=== PATIENT | male | born 1955 | race Caucasian/White ===

== ENCOUNTER 2021-09-15 13:30 | Outpatient (CLI) | payer MEDICARE, SELFPAY ==
--- NOTE | 2021-09-15 14:35 | ECG_ITS ---
Rate 57 CO 185 QRSd 82 QT 413 QTc 403 --[place]-- P 23 QRS -11 T 7 SINUS BRADYCARDIA EARLY PRECORDIAL R/S TRANSITION VOLTAGE CRITERIA FOR LVH BASELINE ARTIFACT- I, II, III, AVR, AVL,A VF BORDERLINE ECG Electronically Signed On 09-15-2021 15:38:49 CDT by Nomi LOCKHART
[2021-09-15 15:38] LABS: Basophils Percent Auto 0.9 % (0.2-1.2); Eosinophils Absolute Auto 0.1 K/mm3 (0-0.3); Eosinophils Percent Auto 1.9 % (0-4.4); Hematocrit 41.3 % (42.0-52.0); Hemoglobin 13.9 g/dL (14.0-18.0); Immature Granulocyte Absolute 0.02 K/mm3 (0.00-0.031); Immature Granulocyte Percent A 0.5 % (0-0.5); Lymphocytes Percent Auto 33.1 % (18.3-44.2); Mean Corpuscular HGB Conc 33.7 g/dl (32-36); Mean Corpuscular Hemoglobin 31.8 pg (26-34); Mean Corpuscular Volume 94.5 fl (80-100); Mean Platelet Volume 9.6 fl (7.4-10.4); Monocytes Absolute Auto 0.5 K/mm3 (0.1-0.6); Monocytes Percent Auto 10.9 % (2.6-8.5); Neutrophils Absolute Auto 2.2 K/mm3 (1.3-6.7); Neutrophils Percent Auto 52.7 % (45.5-73.1); Platelet Count Result 238 k/mm3 (150-375); Red Blood Count 4.37 M/mm3 (4.6-6.20); Red Cell Distribution Width 13.1 % (11.5-14.5); White Blood Count 4.2 K/mm3 (4.5-10.0)
[2021-09-15 15:39] LABS: Albumin Level 4.4 g/dL (3.5-5.1); Anion Gap 8 mmol/L (8-16); Blood Urea Nitrogen 19 mg/dL (9-20); Calcium 9.2 mg/dL (8.4-10.2); Carbon Dioxide 27 mmol/L (22-30); Chloride 104 mmol/L (98-107); Estimated Glomerular Filt Rate > 60; Glucose 95 mg/dL (65-110); Potassium 4.4 mmol/L (3.4-5.0); Sodium 139 mmol/L (137-145)
[2021-09-15 15:50] LABS: Urine Cotinine NEGATIVE
[2021-09-15 16:18] LABS: Hemoglobin A1C 5.3 % (<5.7)
== END 2021-09-15 13:31 | disposition home or self-care (01) ==
LOC: ANHSURGERY 13:35
PROVIDERS: PCP Family Medicine; Visit Provider Orthopaedic Surgery
DX: M16.11 Unilateral primary osteoarthritis, right hip (principal); Z01.818 Encounter for other preprocedural examination
CPT/HCPCS: 80048; 80307; 82040; 83036; 85025; 87070; 93005

== ENCOUNTER → 2021-09-26 00:43 | Outpatient (CLI) | payer MEDICARE, SELFPAY ==
[2021-09-26 17:30] LABS: SARS-CoV-2 RNA PCR Negative
== END ==
PROVIDERS: PCP Family Medicine; Visit Provider Orthopaedic Surgery
DX: Z01.812 Encounter for preprocedural laboratory examination (principal); Z20.822 Contact with and (suspected) exposure to COVID-19; M16.11 Unilateral primary osteoarthritis, right hip
CPT/HCPCS: C9803; U0003; U0005

== ENCOUNTER 2021-09-30 01:40 | Day surgery (SDC) | payer MEDICARE, SELFPAY ==
--- NOTE | 2021-09-15 13:46 | PC.NURSE ---
Report to the Outpatient Waiting Room, entrance under the green pavilion located off [facility], at time ____10:00am___ on date __09/30/21___. OR Time: ____12:00pm____. - You and your visitor will be asked a series of questions to screen for COVID 19 for your protection. - A mask is required within the hospital. - Only one visitor is allowed at this time. Patient visitors will be guided where to wait when not with patient. Preoperative COVID Testing Requirements: No COVID Test needed if: (proof is required; if not received patient will have Rapid Test prior to entry) - Patient has received COVID Vaccine at least 14 days prior to procedure date or - Patient has positive COVID test result within last 90 days of surgery date. COVID Test needed if above criteria is not met If not COVID vaccinated a COVID test must be conducted within 72 hours of surgery and patient is asked to isolate self from time of testing until procedure. You will go to the [facility] for your COVID testing. The [facility] is located at the corner of [address] [facility]. You will only be called if COVID results are positive and your surgeon may reschedule your elective surgery date. Patients may have clear liquids (water, carbonated beverages, clear teas, apple juice) until 3 hours prior to surgery with a maximum of 20 ounces. - No food from midnight until time of surgery - Infants may have breast milk until 4 hours before surgery, infant formula 6 hours prior to surgery. - Children will be allowed to drink immediately following surgery. If applicable, please bring a bottle or sippy cup to assist with drinking. Juice, water, soda, and popsicles are readily available. For infants on formula, please bring formula the day of surgery. Pacifiers are allowed. Take the following medications with a SIP of water the morning of surgery: __none Medications to discontinue per physician ALL VITAMINS/SUPPLEMENTS 3 DAYS PRE-OP, NSAIDS- 7 DAYS PRE-OP 09/23/21 Date to take last dose 09/26/21 Please no make-up, nail taiwanese, hairspray, perfume, deodorant, or body powder the day of surgery. No jewelry (including any body piercings) or valuables the day of surgery, leave them at home. Please take a shower or bath the night before, or the morning of, surgery with an antibacterial soap. Wear comfortable, loose fitting clothing. Children are encouraged to wear pajamas. - Jewelry must be removed prior to entering the operating room. Rings and piercings that are not removed may be cut off. - The hospital will not accept responsibility for valuables. - Please leave all valuables, including medications, at home the day of surgery. If you are going home after surgery, a licensed bulk tank driver must drive you home. - NO public transportation without another adult. - We recommend that an adult stay with you for 24 hours following discharge. - We also recommend that you do not drive, make important decision, drink alcoholic beverages, or take any drugs that were not prescribed by your health care provider for at least 24 hours after your discharge time. For Pediatric surgeries, we recommend two adults accompany the child home (only one inside the building at this time). Follow any additional instructions given to you from your surgeon. Telephone instructions given to patient and asked if any additional questions and then verbalized understanding. Patient advised to call surgeon office or pre surgery nurse liaison [phone] if any additional questions.
[2021-09-15 13:57] VITALS: BP 146/83; PULSE 60; RESP 18; TEMP 36.6; O2SAT 98; BMI 24.7
--- NOTE | 2021-09-28 11:56 | PM.IMHP ---
H&P: HPI History of Present Illness Date/Time: 09/28/21 11:56 66-year-old male patient of Dr. Lebron. He presents today for a right anterior total hip arthroplasty. Patient has had progressively worsening symptoms for the last year. Most of his pain is in the anterior groin and anterior thigh. He has significant pain getting out of a chair or getting in out of a car. He feels at times will lock on him. He has been taking ibuprofen 600 mg 3 times a day without relief. 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 At this point he feels he is ready to proceed with total hip arthroplasty. Chief Complaint: Right hip DJD Review of Systems Review of Systems: All systems reviewed & are unremarkable except as noted in HPI and below PMFSH Past Medical History Medical History Chronic pain CMC arthritis, thumb, degenerative History of chicken pox History of measles History of mumps Insomnia Neck arthritis Surgical History Surgical History History of hip replacement (~2010) History of knee surgery (~2018) Hx of decompressive lumbar laminectomy Family History Family History Mother , age 94 Hyperlipidemia Father , age 79 Liver cancer Sibling , age 60 No problems noted. Daughter No chronic problems Daughter No chronic problems Other Cerebrovascular accident Social History Social History Smoking packs per day: 0.5 Smoking cigarettes per day: 10.0 Years smoked: 10 Smoking pack-years: 5.00 Smoking status: Former smoker Tobacco type: cigarettes Smoking end date: 08/20/21 Additional smoking assessment comments: FOR THE LAST 10 YRS 4-8 CIG/DAY Alcohol intake: current Drinks per week: 6 Substance use: never Additional living arrangements comments: Spiritual care concerns: No Meds Home Medications and Allergies Home Medications Medication Instructions Recorded Confirmed Type sildenafil (pulm.hypertension) 20 20 mg PO .COMPLEX PRN #30 tablet 02/29/20 09/15/21 Rx mg tablet diclofenac sodium 75 mg PO BID 09/15/21 09/15/21 History flaxseed 3 ea PO QAM 09/15/21 09/15/21 History misoprostol 200 mcg PO BID 09/15/21 09/15/21 History Allergies Allergy/AdvReac Type Severity Reaction Status Date / Time rosuvastatin AdvReac Unknown MUSC Verified 09/15/21 13:52 DISCOORNIATION simvastatin AdvReac Unknown Muscle pain Verified 09/15/21 13:52 Exam Narrative: 66-year-old male alert pleasant. He is 5 ft 10 and 170 lb. Right hip range of motion is from 0-110 degrees which causes him groin pain. Internal rotation is 0 causing groin pain. External rotation 20? again with groin pain. Stinchfield maneuver causes him the same typical groin pain. He has normal abduction strength. Skin around the hip and groin area are all normal. Normal light touch sensation right lower extremity. 2+ dorsalis pedis and posterior tibial artery pulse. Resp: Auscultation: clear to auscultation bilaterally Cardio: Rate: regular rate Rhythm: regular rhythm Assessment and Plan Additional Plan 66-year-old male has moderately severe arthritis of the right hip. He is having significant symptoms on a daily basis. He is ready to proceed with total hip arthroplasty. Surgical procedure as well as risks and complications were discussed in detail all questions were answered and we will proceed. He will see his primary care doctor for pre-surgical clearance. He will stop his diclofenac and any other aspirin or ibuprofen products 1 week prior to surgery. Patient was advised he will need to quit smoking prior to surgery. His nasal swab was negative. Creatinine is 0.80. Hemoglobin is 13.9 and platelets are 238. plan use Eliquis for DVT
--- NOTE | 2021-09-29 13:32 | WPDANESEPPF ---
Anes - Initial Pre Proc Eval Procedure: Operation Date: 09/30/21 12:00 Proposed Procedures p Right Total Hip Arthroplasty, Direct Anterior Approach - Lam Keller MD Date/Time: 09/29/21 13:32 Surgeon: Lam Keller MD Pre Op Diagnosis: OA right hip Patient Data Age: 66 Gender: M Height: 1.8 m Weight: 80.5 kg Last Vital Signs Temp 36.6 C 09/15/21 13:57 Pulse 60 09/15/21 13:57 Resp 18 09/15/21 13:57 BP 146/83 H 09/15/21 13:57 Pulse Ox 98 09/15/21 13:57 Allergies Allergy/AdvReac Type Severity Reaction Status Date / Time rosuvastatin AdvReac Unknown MUSC Verified 09/15/21 13:52 DISCOORNIATION simvastatin AdvReac Unknown Muscle pain Verified 09/15/21 13:52 Home Medications Medication Instructions Recorded Confirmed Type sildenafil (pulm.hypertension) 20 20 mg PO .COMPLEX PRN #30 tablet 02/29/20 09/15/21 Rx mg tablet diclofenac sodium 75 mg PO BID 09/15/21 09/15/21 History flaxseed 3 ea PO QAM 09/15/21 09/15/21 History misoprostol 200 mcg PO BID 09/15/21 09/15/21 History Patient hx anesthesia problems: none Family hx anesthesia problems: none Results Review: All pre-operative results and documents have been reviewed as part of the pre-operative evaluation. [facility] Past Medical History Medical History Chronic pain CMC arthritis, thumb, degenerative History of chicken pox History of measles History of mumps Insomnia Neck arthritis Surgical History Surgical History History of hip replacement (~2010) History of knee surgery (~2017) Hx of decompressive lumbar laminectomy Family History Family History Mother , age 94 Hyperlipidemia Father , age 79 Liver cancer Sibling , age 60 No problems noted. Daughter No chronic problems Daughter No chronic problems Other Cerebrovascular accident Social History Social History Smoking packs per day: 0.5 Smoking cigarettes per day: 10.0 Years smoked: 10 Smoking pack-years: 5.00 Smoking status: Former smoker Tobacco type: cigarettes Smoking end date: 08/20/21 Additional smoking assessment comments: FOR THE LAST 10 YRS 4-8 CIG/DAY Alcohol intake: current Drinks per week: 6 Substance use: never Living arrangements: with family Additional living arrangements comments: Spiritual care concerns: No Anes - Eval Final PreProcedure Day of Procedure 09/29/21 13:32 Patient weight: normal Heart: regular rate and rhythm Lungs: clear to auscultation and normal air movement Airway: Mallampati scale class II Neurological: alert and oriented Last oral intake: >/= 8 hours ASA classification: II Emergent: no Anesthetic plan: proceed Anesthesia type and monitoring: general ETT Results Review: All pre-operative results and documents have been reviewed as part of the pre-operative evaluation. Informed Consent: The patient's anesthetic plan and its attendant risks and benefits were discussed with the patient/family/POA. Questions were solicited and answers provided to the satisfaction of the patient/family/POA.
[2021-09-30] VITALS (16 sets, daily range): BP systolic 118–180; BP diastolic 69–103; PULSE 60–99; RESP 11–20; TEMP 36.1–37; O2SAT 94–100
--- NOTE | ~2021-09-30 | XR_ITS ---
EXAMINATION: XR surgery orthopedic DATE: 09/30/2021 14:59 INDICATION: Anterior approach right total hip arthroplasty TECHNIQUE: 2 fluoroscopic frontal images of the right hip were obtained during procedure performed by Dr. Keller. Radiologist was not present for the imaging or procedure. The amount of fluoroscopy alexandria e used during this procedure was 0.7 minutes. COMPARISON: None FINDINGS: Placement of a noncemented right total hip arthroplasty which appears in near-anatomic alignment. The acetabular component is affixed with at least a single screw. No fractures identified. Expected soft tissue gas at the operative bed. IMPRESSION: 1. Expected appearance during right total hip arthroplasty. See procedure note for further detail. Reviewed, dictated and finalized at location A. [employer]
--- NOTE | ~2021-09-30 | XR_ITS ---
EXAMINATION: XR hip RT 1V w AP pelvis DATE: 09/30/2021 15:16 INDICATION: Right total hip arthroplasty. Postop. TECHNIQUE: An anteroposterior view of the pelvis and single view of right hip were obtained. COMPARISON: None. FINDINGS: There are bilateral total hip arthroplasties in near-anatomic alignment. No fracture. There is gas in the soft tissues around the right hip, consistent with recent surgery. A surgical drain is noted. IMPRESSION: 1. Bilateral total hip arthroplasties in near-anatomic alignment. Reviewed, dictated and finalized at location A. HET SETTER
[2021-09-30] MEDS: LACTATED RINGERS 1,000 ML 30 ML IV CONT ×2 (10:10→15:16)
[2021-09-30] MEDS: ACETAMINOPHEN 500 MG TABLET 1000 MG PO ×3 (10:10→23:58)
[2021-09-30] MEDS: TRANEXAMIC ACID 1,000MG/ISO100 1,000 MG/100 ML BAG 200 MG IVPB (10:30)
[2021-09-30] MEDS: ceFAZolin SODIUM 1 GM VIAL 3 GM IRRIGATION (11:06)
--- NOTE | 2021-09-30 11:06 | WPDHPUPDATE1 ---
History and Physical Update Update Date/Time: 09/30/21 11:06 History and Physical has been reviewed, including an updated exam of the patient. There are NO changes in the patient's condition. Risks, benefits, and alternatives have been discussed and questions answered. Patient agrees to proceed with procedure.
[2021-09-30] MEDS: ceFAZolin 2 GM/D5W 50 ML 2 GM/50 ML BAG IVPB (11:19)
[2021-09-30] MEDS: ceFAZolin SODIUM 1 GM VIAL IV PUSH (14:45)
[2021-09-30] MEDS: TRANEXAMIC ACID 1,000 MG/10 ML AMPUL 1000 MG IV PUSH (14:45)
[2021-09-30] MEDS: fentaNYL CITRATE INJ (*CRX) 100 MCG/2 ML VIAL 25 MCG IV PUSH ×8 (15:24→15:57)
--- NOTE | 2021-09-30 15:31 | W.PM.PROC2 ---
Procedure Note - Detailed Date of Procedure 09/30/21 Pre-op Diagnosis OA right hip Post-op Diagnosis same Procedure Performed Direct anterior approach right total hip arthroplasty Surgeon Lam Keller MD Blind Hooker Kris Anesthesia general Description of Procedure Patient was brought to the operating room and general anesthesia was administered. Boots were placed on the feet after careful padding with additional soft roll and he was transferred to the OSI Wendel table and the right hip prepped draped usual fashion. He received 2 g of Ancef weight based vancomycin 1 g of tranexamic acid preoperatively. A 10 cm longitudinal incision was made starting 3 cm lateral to the ASIS. Dissection was carried down to the fascia over the tensor fascia karla which was longitudinally incised over its midportion and the anterior aspect elevated off the tensor fascia karla muscle. Interval between tensor fascia karla and rectus femoris was developed. His ascending lateral femoral circumflex vessels were isolated ligated with suture divided. Ileal capsular is elevated off anterior capsule and the hip abducted and internally rotated and the gluteus minimus elevated off the lateral capsule. Standard capsulotomy was performed elevating the capsule off the anterior femur and the lateral aspect of the base of femoral neck. Femoral neck osteotomy was made according to preoperative template. The femoral head was removed and measured 54 mm in diameter. It was surrounded by large peripheral osteophyte. Was eburnated on the top portion. The acetabular labrum was excised. The leg was externally rotated extended and the interval between the conjoined tendon and the piriformis tendon incised which allowed the conjoined tendon to recess and the piriformis tendon flipped posteriorly increasing the anterior mobilization of the femur. The leg was placed back in the horizontal position with external rotation and longitudinal traction the acetabulum was exposed. We medialized with a 44 Reamer to the medial wall and reamed up to 53 mm which time we had peripheral contact all the way around. Was a tight fit with the 53 Reamer. We carefully reamed with a 54 and countersunk the 53 another 2 mm and chose the 54 pinnacle cup was impacted at 40? of abduction anteversion such that the anterior rim of the acetabular shell was a mm under the anterior wall and excellent Press-Fit was achieved. A single screw was placed into the ilium for additional fixation and the 36 inner diameter liner was fully seated. The femur was extended externally rotated we broached up to a size 7 which seemed to have complete torsional stability and had good impaction resistance. We trialed and the high offset stem 1.5 neck was used. This gave equal leg lengths based on lesser trochanters. Made the offset quite a bit larger than the other side but this is what we templated to if we wish to leave his increased offset. Was quite stable. Hip was dislocated and we calcar planed and then 1 more time we carefully assessed the torsional stability of the stem because on x-ray it seemed to be a little undersized and indeed we were able to then demonstrate some torsional play assess attaining going up to a size 8. This was impacted and fully seated the level of the calcar planed not this gave complete torsional stability. We trialed and this time the high offset 1.5 was just too tight due to the extra length and 2 mm offset with the jump incised. The 1.5 standard neck was unstable but the +5 head on the standard neck was stable. It lengthen him about 1-2 mm according to the lesser sac. Which showed we had excellent fill femur the AP and lateral views and I felt this would be satisfactory and proceeded to countersink the broach to mm and calcar planed. The size 8 standard offset Actis stem was placed and seated fully with excellent stability in the stem. We trialed 1 more time with a +5 and was appropriately stable but not exce
[2021-09-30] MEDS: HYDROmorphone HCL INJ (*CRX) 1 MG/ML SYR 0.5 MG IV PUSH ×4 (16:01→16:24)
[2021-09-30] MEDS: KETOROLAC 15 MG/ML VIAL (*BKC) IV PUSH (16:14)
--- NOTE | 2021-09-30 16:40 | SUR.PHASEI ---
1600 pt complains severe pain ,called dr carr and aware of pain meds given. orders for dilaudid for pain control.
[2021-09-30] MEDS: ONDANSETRON INJ 4 MG/2 ML VIAL IV PUSH (18:54)
[2021-09-30] MEDS: FAMOTIDINE 20 MG TABLET PO (20:05)
[2021-09-30] MEDS: oxyCODONE HCL (*CRX) 5 MG TAB IR PO (20:06)
[2021-09-30] MEDS: SENNA/DOCUSATE SODIUM TABLET 2 TAB PO (20:06)
--- NOTE | 2021-09-30 20:50 | PM.IMCN ---
Assessment and Plan Assessment and plan (1) Status post right hip replacement: Onset Date: 09/30/21 Code(s): Z96.641 - Presence of right artificial hip joint Status: Acute Assessment and Plan: Management per primary service. (2) Elevated blood pressure reading: Code(s): R03.0 - Elevated blood-pressure reading, without diagnosis of hypertension Status: Acute Assessment and Plan: Likely due to initially poor controlled postoperative pain. As the patient's pain has improved his is now normotensive with systolic blood pressures less than 140. Will continue to monitor blood pressure. The patient may prove fit from home blood pressure monitoring at least once or twice a week as outpatient. HPI Data of Consult Consult date: 10/01/21 Requesting Physician: Lam Keller MD Primary Care Provider: Basil Lebron MD Consult Narrative Narrative: Date and time of patient contact: 09/30/2021 at 9:00 p.m. Ethan Schneider is a 66 year old male with a past medical history of osteoarthritis and erectile dysfunction who presented hospital for planned right total hip arthroplasty due to intractable pain. He reports that he has been having right groin pain that has been progressive for 6 months. Patient underwent total right hip procedure without difficulty. However, immediately postop patient did have some elevated blood pressures. The patient reported that immediately postop he had severe right hip pain. Hip pain was 8/10 in intensity. At that time his systolic blood pressures were in the 180s. The patient reports that he will on occasion check his blood pressures on a friends machine. His blood pressure last week was 132 over 80s. He reports that he exercises regularly and is relatively healthy. His main medical issue has been osteoarthritis with multiple joint replacements. He reports that the pain is now improved and is down to a 2/10 in intensity and subsequently the patient's blood pressures have improved and he is now normotensive. He denies any chest pain or shortness of breath. He does not have a history of hypertension or heart disease. He has not yet urinated since surgery but thinks that he will eat ill to use the urinal soon. He does have a history of BPH that is usually well controlled with flaxseed supplement. His last bowel movement was yesterday. Review of Systems Review of Systems: 12 systems were reviewed with pertinent positives and negatives per HPI. Except as documented in the HPI, all other systems were reviewed and are negative. [facility] Past Medical History Medical History (Updated 10/01/21 @ 02:29 by Sola Rene DO) BPH (benign prostatic hyperplasia) Chronic pain CMC arthritis, thumb, degenerative Erectile dysfunction History of chicken pox History of measles History of mumps Insomnia Mixed hyperlipidemia Neck arthritis Surgical History Surgical History (Updated 10/01/21 @ 02:29 by Sola Rene DO) History of total left hip replacement (~2010) History of total right knee replacement (TKR) (~06/2018) Hx of decompressive lumbar laminectomy (~2019) Normal colonoscopy (~05/2019) Family History Family History Mother , age 94 Hyperlipidemia Father , age 79 Liver cancer Sibling , age 60 No problems noted. Daughter No chronic problems Daughter No chronic problems Other Cerebrovascular accident Social History Social History (Updated 10/01/21 @ 02:32 by Sola Rene DO) Social History: He lives with his of 35 years. They have 3 daughters who are healthy. 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 He does not have a cellphone and will not use social media. He reports that he exercises on a regular basis. He has smoked anywhere from 3 cigarettes up to half a pack of cigarettes per week throughout his adult life b
[2021-10-01] MEDS: oxyCODONE HCL (*CRX) 5 MG TAB IR PO ×3 (00:02→08:59)
[2021-10-01 03:41] VITALS: BP 105/57; PULSE 66; RESP 17; TEMP 36.6; O2SAT 98
[2021-10-01] MEDS: CEPHALEXIN 500 MG CAPSULE PO ×2 (05:32→12:22)
[2021-10-01] MEDS: ACETAMINOPHEN 500 MG TABLET 1000 MG PO ×2 (05:32→12:22)
[2021-10-01 05:53] LABS: Anion Gap 7 mmol/L (8-16); Blood Urea Nitrogen 13 mg/dL (9-20); Calcium 8.6 mg/dL (8.4-10.2); Carbon Dioxide 25 mmol/L (22-30); Chloride 106 mmol/L (98-107); Estimated CRCL calculation 76 ml/min; Estimated Glomerular Filt Rate > 60; Glucose 136 mg/dL (65-110); Sodium 138 mmol/L (137-145)
[2021-10-01 06:01] LABS: Basophils Percent Auto 0.2 % (0.2-1.2); Hematocrit 35.5 % (42.0-52.0); Hemoglobin 11.9 g/dL (14.0-18.0); Immature Granulocyte Absolute 0.04 K/mm3 (0.00-0.031); Immature Granulocyte Percent A 0.4 % (0-0.5); Lymphocytes Absolute Auto 0.99 K/mm3 (0.9-3.2); Lymphocytes Percent Auto 10.5 % (18.3-44.2); Mean Corpuscular HGB Conc 33.5 g/dl (32-36); Mean Corpuscular Hemoglobin 31.8 pg (26-34); Mean Corpuscular Volume 94.9 fl (80-100); Mean Platelet Volume 9.7 fl (7.4-10.4); Monocytes Absolute Auto 0.9 K/mm3 (0.1-0.6); Neutrophils Absolute Auto 7.5 K/mm3 (1.3-6.7); Neutrophils Percent Auto 79.9 % (45.5-73.1); Platelet Count Result 236 k/mm3 (150-375); Red Blood Count 3.74 M/mm3 (4.6-6.20); Red Cell Distribution Width 13.4 % (11.5-14.5); White Blood Count 9.4 K/mm3 (4.5-10.0)
--- NOTE | 2021-10-01 07:01 | PM.PNORT ---
Progress Note: A&P Additional Plan POD 1 avss alert , drain is out , pt has been up to restroom overnight, pain is well controlled, dressing is dry, NVI, labs-noted,overall doing well. Plan to have pt work with PT then send home later today Subjective Subjective Date/Time Seen: 10/01/21 07:01 Objective Data Vital Signs Vital Signs: Vital Signs - 24 hr 09/30/21 10:42 09/30/21 15:16 09/30/21 15:30 Temperature 36.1 C L 36.1 C L Pulse Rate 60 79 78 Respiratory Rate 17 14 Blood Pressure 128/92 H 131/97 H 151/91 H Pulse Oximetry 99 100 99 09/30/21 15:45 09/30/21 16:00 09/30/21 16:15 Temperature Pulse Rate 71 77 73 Respiratory Rate 11 L 20 17 Blood Pressure 149/103 H 144/91 H 158/86 H Pulse Oximetry 96 96 98 09/30/21 16:30 09/30/21 16:45 09/30/21 17:01 Temperature Pulse Rate 65 62 79 Respiratory Rate 17 12 16 Blood Pressure 142/89 H 154/82 H 141/94 H Pulse Oximetry 95 98 99 09/30/21 17:15 09/30/21 17:30 09/30/21 18:33 Temperature Pulse Rate 73 75 Respiratory Rate 16 12 16 Blood Pressure 142/88 H 143/95 H 180/95 H Pulse Oximetry 94 09/30/21 18:52 09/30/21 19:28 09/30/21 20:00 Temperature 36.8 C 36.2 C L Pulse Rate 83 86 86 Respiratory Rate 18 18 18 Blood Pressure 155/85 H 138/92 H Pulse Oximetry 98 97 97 09/30/21 23:31 10/01/21 03:41 Temperature 37.0 C 36.6 C Pulse Rate 99 66 Respiratory Rate 17 17 Blood Pressure 118/69 105/57 L Pulse Oximetry 98 98 Intake/Output Intake/Output: Intake & Output 09/28/21 09/29/21 09/30/21 10/01/21 23:59 23:59 23:59 23:59 Intake Total 1000 500 Output Total 200 805 Balance 800 -305 Meds/Results Medications: Active Medications Generic Name Dose Route Start Last Admin Trade Name Freq PRN Reason Stop Dose Admin Acetaminophen 1,000 mg 09/30/21 18:00 10/01/21 05:32 Acetaminophen 500 Mg Tablet PO 1,000 mg Q6HR LAURE Administration Al Hydrox/Mg Hydrox/Simethicone 30 ml 09/30/21 17:36 Mag Hydrox/Al Hydrox/Simeth 30 Ml Udc PO Q6H PRN Indigestion Apixaban 2.5 mg 10/01/21 09:00 Apixaban 2.5 Mg Tablet PO 11/04/21 21:01 Q12HR LAURE Celecoxib 200 mg 10/01/21 09:00 Celecoxib 200 Mg Capsule PO DAILY LAURE Cephalexin HCl 500 mg 10/01/21 06:00 10/01/21 05:32 Cephalexin 500 Mg Capsule PO 500 mg Q6HR LAURE Administration Famotidine 20 mg 09/30/21 21:00 09/30/21 20:05 Famotidine 20 Mg Tablet PO 20 mg Q12HR LAURE Administration Hydroxyzine HCl 50 mg 09/30/21 17:36 Hydroxyzine Hcl 25 Mg Tablet PO Q4H PRN Itching Vancomycin HCl 1,000 mg in 250 mls @ 250 mls/hr 09/30/21 22:00 10/01/21 00:55 Vancomycin 1,000 Mg/D5w 250 Ml IVPB 10/01/21 10:59 Infused Q12H LAURE Infusion Cefazolin Sodium 1 gm in 50 mls @ 100 mls/hr 09/30/21 19:00 10/01/21 04:00 Ancef 1 Gm/D5w 50 Ml Pm IVPB 10/01/21 11:29 Infused Q8H LAURE Infusion Morphine Sulfate 2 mg 09/30/21 17:36 Morphine Sulfate (*Crx) 2 Mg/Ml Inj IV PUSH Q4H PRN Pain Rated 7-10 Naloxone HCl 0.1 mg 09/30/21 17:36 Naloxone Hcl 0.4 Mg/Ml Vial IV PUSH Q2M PRN Opiate Reversal Ondansetron HCl 4 mg 09/30/21 17:36 09/30/21 18:54 Ondansetron Inj 4 Mg/2 Ml Vial IV PUSH 4 mg Q4H PRN Administration Nausea And Vomiting Oxycodone HCl 5 mg 09/30/21 21:00 10/01/21 05:32 Oxycodone Hcl (*Crx) 5 Mg Tab Ir PO 5 mg Q4HR LAURE Administration Oxycodone HCl 5 mg 09/30/21 17:36 Oxycodone Hcl (*Crx) 5 Mg Tab Ir PO Q4H PRN Pain Rated 4-6 Polyethylene Glycol 17 gm 10/01/21 09:00 Polyethylene Glycol 3350 17 Gm Powd.Pack PO QAM LAURE Senna/Docusate Sodium 2 tab 09/30/21 17:36 09/30/21 20:06 Senna/Docusate Sodium Tablet PO 2 tab BID LAURE Administration Radiology Results: ITS Impressions Intraoperative X-Ray 09/30/21 15:13 IMPRESSION: 1. Expected appearance during right total hip arthroplasty. See procedure note for further detai
--- NOTE | 2021-10-01 07:07 | PM.DS ---
DS: Admitting Diagnosis Discharge Date Admitting Diagnosis right hip DJD DS: Summary Hospital Course Hospital Course: stable Time Spent with Patient Time attestation: Total time spent providing and/or coordinating discharge services: 66-year-old male who underwent right anterior total hip arthroplasty on 09 30. Underwent procedure without complications. Postoperatively he has been afebrile vital signs were stable. His wound is dry. He is weight-bearing as tolerated. He is on Eliquis for DVT prophylaxis. Pain is well-controlled scheduled Tylenol as well as oxycodone 5 mg. He is Celebrex for the 1st 2 weeks for heterotopic bone prophylaxis. Patient was walking to the restroom evening of surgery. Postop day 1 he was alert pain well controlled he is comfortable. Will plan to have therapy work with the patient today and continues to well pad and discharge him home on 10/01. He is also going home on Senokot MiraLax. He is also going home on a 2 week course of Keflex because he is a smoker. Patient was advised any questions or concerns he is to call the office otherwise will see him back as appointed states. DS: Data Data Completed and Pending Labs on day of discharge: Labs from last 24 hours 10/01/21 10/01/21 09/30/21 05:16 05:16 10:13 WBC 9.4 RBC 3.74 L Hgb 11.9 L Hct 35.5 L MCV 94.9 MCH 31.8 MCHC 33.5 RDW 13.4 Plt Count 236 MPV 9.7 Immature Gran % (Auto) 0.4 Neut % (Auto) 79.9 H Lymph % (Auto) 10.5 L [place] % (Auto) 9.0 H Eos % (Auto) 0.0 Baso % (Auto) 0.2 Lymph # (Auto) 0.99 [place] # (Auto) 0.9 H Eos # (Auto) 0.0 Baso # (Auto) 0.0 Abs Immat Gran (auto) 0.04 H Absolute Neuts (auto) 7.5 H Absolute Nucleated RBC 0.0 Nucleated RBC % 0.0 Sodium 138 Potassium 4.0 Chloride 106 Carbon Dioxide 25 Anion Gap 7 L BUN 13 D Creatinine 0.90 Estim Creat Clear Calc 76 Estimated GFR > 60 Glucose 136 H Calcium 8.6 Blood Type O Positive Antibody Screen Negative Discharge Plan Discharge Patient Disposition: Home, Self-Care Discharge Instructions: LAM KELLER M.D [facility], [facility] [address] [place] [address] POST-OPERATIVE DISCHARGE INSTRUCTIONS ANTERIOR TOTAL HIP ARTHROPLASTY 1. Move toes/feet up and down every hour while awake. 2. Be up walking every hour while awake. 3. Use cane in hand opposite of side of hip surgery or walker as comfort allows. Avoid sitting in a chair unless eating, receiving visitors or using the toilet. 4. When resting, lie on back with leg elevated above heart to minimize swelling. Significant swelling could indicate a blood clot and if this occurs, call the office (or go to the ER) to have a venous ultrasound performed. 5. Wound Care: Keep dry sponge on wound for 2 weeks. Use minimal tape. 6. Follow weight bearing status as instructed. 7. May shower with dressing off. Stand Alone Forms: General Discharge Instructions Follow-up/Referrals: Lam Keller MD [Physician] - Keep Reg. Scheduled Appt. Discharge Medications: New celecoxib [Celebrex] 200 mg Capsule 200 mg PO DAILY Qty: 14 RF: 0 polyethylene glycol 3350 [Miralax] 17 gram Powder In Packet 17 g PO QAM Qty: 30 RF: 0 sennosides-docusate sodium [Senokot-S] 8.6-50 mg Tablet 2 tab PO BID Qty: 60 RF: 0 acetaminophen 500 mg Tablet 1,000 mg PO Q6HR Qty: 60 RF: 0 cephalexin 500 mg Capsule 500 mg PO Q6HR Qty: 56 RF: 0 oxycodone 5 mg Tablet 5 mg PO Q4HR Qty: 40 RF: 0 Eliquis 2.5 mg Tablet 2.5 mg PO Q12HR Qty: 69 RF: 0 Continued flaxseed Powder 3 ea PO QAM RF: 0 sildenafil (pulm.hypertension) 20 mg tablet 20 mg PO .COMPLEX PRN (Reason: sexual activity) Qty: 30 RF: 5 Discontinued misoprostol 200 mcg tablet 200 mcg PO BID RF: 0 diclofenac sodium 75 mg tablet,d
[2021-10-01] MEDS: APIXABAN 2.5 MG TABLET PO (08:59)
[2021-10-01] MEDS: SENNA/DOCUSATE SODIUM TABLET 2 TAB PO (08:59)
[2021-10-01] MEDS: FAMOTIDINE 20 MG TABLET PO (08:59)
[2021-10-01] MEDS: CELECOXIB 200 MG CAPSULE PO (08:59)
[2021-10-01] MEDS: polyethylene glycoL 3350 17 GM POWD.PACK PO (08:59)
== END 2021-10-01 12:27 | disposition home or self-care (01) ==
LOC: ANHSURGERY 11:06 → ANH2MED 17:38
PROVIDERS: Physician Assistant Surgical; PCP Family Medicine; Visit Provider Orthopaedic Surgery
PROC: (CPT 27130; principal; 2021-09-30 12:00)
DX: M16.11 Unilateral primary osteoarthritis, right hip (principal); R03.0 Elevated blood-pressure reading, without diagnosis of hypertension; G89.18 Other acute postprocedural pain; Z87.891 Personal history of nicotine dependence
CPT/HCPCS: 27130; 36415; 73501; 80048; 80307; 82040; 83036; 85025; 86850; 86900; 86901; 87070; 93005; 97110; 97161; 97165; 97535; A9270; C1776; C9803; J0171; J0690; J1100; J1170; J1885; J2250; J2270; J2370; J2405; J2704; J2710; J2795; J3010; J3370; J7120; U0003; U0005

== ENCOUNTER 2022-04-11 15:47 | Emergency (ER) | payer MEDICARE, SELFPAY ==
--- NOTE | ~2022-04-11 | CT_ITS ---
EXAMINATION: CT abdomen pelvis wo con DATE: 04/11/2022 16:51 INDICATION: Right lower quadrant pain TECHNIQUE: Computed tomography (CT) of the abdomen and pelvis was performed without intravenous contr ast. The dose-length product was 549.36 mGy-cm. Automated exposure control and iterative reconstructi on technique were employed. COMPARISON: None. FINDINGS: There is dependent atelectasis. No significant pleural or pericardial effusion. Heart size is normal. There is a fusiform suprarenal and infrarenal abdominal aortic aneurysm measuring up to 3. 7 cm greatest dimension. No lymphadenopathy. There are bilateral hip arthroplasties treating streak a rtifact limiting evaluation of the pelvis. Nonobstructive bowel gas pattern. Appendix measures 7 mm t ransversely which is borderline sized. No significant periappendiceal infiltration. The liver, spleen, pancreas, adrenal glands and kidneys are unremarkable. Gallbladder is contracted. No significant hydronephrosis. No renal stones. No free air or free fluid. There is mild-moderate lum bar spondylosis. IMPRESSION: 1. Appendix size is borderline measuring 7 mm transversely. No significant periappendiceal inflammati on. 2: Fusiform abdominal aortic aneurysm beginning above the renal arteries measuring 3.7 cm greatest di mension. Reviewed, dictated and finalized at location A. IMPRESSION: 1. Appendix size is borderline measuring 7 mm transversely. No significant venessa appendiceal inflammation. 2: Fusiform abdominal aortic aneurysm beginning above the renal arteries measur ing 3.7 cm greatest dimension.
[2022-04-11 15:51] VITALS: BP 148/74; PULSE 78; RESP 17; TEMP 36.3; O2SAT 99
--- NOTE | 2022-04-11 16:05 | ED.ABDPAIN ---
HPI - Abdominal Pain General Chief Complaint: Abdominal Pain Stated Complaint: abd pain Time Seen by Provider: 04/11/22 15:56 History of Present Illness HPI narrative: 67-year-old male with a history of laser vaporization of the prostate here for evaluation of intermittent right inguinal pain for the past day. Patient states the pain comes on randomly, sharp in nature, lasting seconds at a time, and resolves without intervention. Patient states that he has been at rest whenever he notices the pain. He has not tried anything for his pain. Denies history of previous similar sensation. Denies nausea, vomiting, changes in stool, fevers, dysuria, urgency, low back pain. He has been eating normally today. Does endorse alcohol use yesterday, but states the pain came on prior to drinking. No history of surgeries on his abdomen; still has appendix. Related Data Allergies Allergy/AdvReac Type Severity Reaction Status Date / Time rosuvastatin AdvReac Unknown MUSC Verified 04/11/22 15:53 DISCOORNIATION simvastatin AdvReac Unknown Muscle pain Verified 04/11/22 15:53 Review of Systems Review of Systems: Gen.: Denies fevers or chills Eyes: Denies eye pain or visual change ENT: Denies congestion Respiratory: Denies shortness of breath or cough CV: Denies chest pain or palpitations GI: Reports right lower quadrant pain. Denies nausea, emesis or diarrhea : denies burning, urgency, frequency or hematuria Musculoskeletal: Denies back pain or muscle pain Neuro: Denies numbness, tingling, weakness or focal weakness Skin: Denies rash Except as documented, all other systems reviewed and negative [facility] Past Medical History Medical History (Updated 04/11/22 @ 17:41 by Karo Crystal PA-C) BPH (benign prostatic hyperplasia) Chronic pain CMC arthritis, thumb, degenerative Erectile dysfunction History of chicken pox History of measles History of mumps Insomnia Mixed hyperlipidemia Neck arthritis Surgical History Surgical History (Updated 12/24/21 @ 17:15 by Basil Lebron MD) History of prostate surgery Laser vaporization 2021 History of total left hip replacement (~2010) History of total right knee replacement (TKR) (~06/2018) History of transurethral prostatectomy Hx of decompressive lumbar laminectomy (~2019) Normal colonoscopy (~05/2019) Family History Family History Mother , age 94 Hyperlipidemia Father , age 79 Liver cancer Sibling , age 60 No problems noted. Daughter No chronic problems Daughter No chronic problems Other Cerebrovascular accident Social History Social History (Updated 10/15/21 @ 11:07 by ANA Corona) Social History: He lives with his of 35 years. They have 3 daughters who are healthy. 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 He does not have a cellphone and will not use social media. He reports that he exercises on a regular basis. He has smoked anywhere from 3 cigarettes up to half a pack of cigarettes per week throughout his adult life but quit smoking last month. He drinks 3-4 alcoholic beverages a week. He denies any illicit substance use. Smoking packs per day: 0.5 Smoking cigarettes per day: 10.0 Years smoked: 10 Smoking pack-years: 5.00 Tobacco type: cigarettes Smoking end date: 08/20/21 Additional smoking assessment comments: FOR THE LAST 10 YRS 4-8 CIG/DAY Alcohol intake: current Drinks per week: 6 Substance use: never Additional living arrangements comments: Spiritual care concerns: No Exam Narrative: APPEARANCE: Well appearing, no pain in distress, well-nourished. Head: normocephalic and atraumatic. EYES: PERRLA/EOMI, conjunctivae clear NOSE: No nasal drainage EARS: External ear normal in appearance THROAT: Oropharynx is clear. Mucous membranes are moist. NECK: Supple. No adenopathy, n
[2022-04-11 16:17] LABS: Basophils Percent Auto 0.9 % (0.2-1.2); Eosinophils Absolute Auto 0.1 K/mm3 (0-0.3); Eosinophils Percent Auto 3.2 % (0-4.4); Hematocrit 42.4 % (42.0-52.0); Hemoglobin 13.9 g/dL (14.0-18.0); Immature Granulocyte Absolute 0.02 K/mm3 (0.00-0.031); Immature Granulocyte Percent A 0.5 % (0-0.5); Lymphocytes Absolute Auto 1.65 K/mm3 (0.9-3.2); Lymphocytes Percent Auto 37.6 % (18.3-44.2); Mean Corpuscular HGB Conc 32.8 g/dl (32-36); Mean Corpuscular Hemoglobin 30.5 pg (26-34); Mean Corpuscular Volume 93.2 fl (80-100); Mean Platelet Volume 9.7 fl (7.4-10.4); Monocytes Absolute Auto 0.4 K/mm3 (0.1-0.6); Monocytes Percent Auto 8.9 % (2.6-8.5); Neutrophils Absolute Auto 2.2 K/mm3 (1.3-6.7); Neutrophils Percent Auto 48.9 % (45.5-73.1); Platelet Count Result 254 k/mm3 (150-375); Red Blood Count 4.55 M/mm3 (4.6-6.20); Red Cell Distribution Width 14.1 % (11.5-14.5); White Blood Count 4.4 K/mm3 (4.5-10.0)
[2022-04-11 16:25] LABS: Appearance Urine Clear (Clear); Bilirubin Urine Negative (Negative); Blood Urine Negative (Negative); Color Urine Yellow (Yellow); Glucose Urine UA Negative (Negative); Ketones Urine Negative (Negative); Leukocyte Esterase Ur Negative LEU/UL (Negative); Nitrate Urine Negative (Negative); Protein Urine Negative (Negative); Specific Grav Ur 1.025 (1.001-1.035); Urobilinogen Urine 0.2 mg/dL (<2.0); pH Urine 5.5 (5.0-9.0)
[2022-04-11 16:26] LABS: Alanine Aminotransferase 21 U/L (6-50); Albumin Level 4.4 g/dL (3.5-5.1); Alkaline Phosphatase 88 U/L (38-126); Anion Gap 10 mmol/L (8-16); Aspartate Amino Transferase 28 U/L (17-59); Bilirubin,Total 0.3 mg/dL (0.2-1.3); Blood Urea Nitrogen 19 mg/dL (9-20); Calcium 9.1 mg/dL (8.4-10.2); Carbon Dioxide 21 mmol/L (22-30); Chloride 109 mmol/L (98-107); Estimated CRCL calculation 95 ml/min; Estimated Glomerular Filt Rate > 60; Glucose 106 mg/dL (65-110); Lipase 157 U/L (23-300); Potassium 4.1 mmol/L (3.4-5.0); Sodium 140 mmol/L (137-145)
[2022-04-11 16:42] LABS: RBC Urine 0-2 /hpf (0-2); Squamous Epithelial Cell Urine Rare /hpf (Few); WBC Urine 0-3 /hpf
[2022-04-11 16:56] LABS: Add Urine Microscopic? YES
[2022-04-11 17:51] VITALS: BP 136/86; PULSE 80; RESP 16; O2SAT 99
== END 2022-04-11 17:52 | disposition home or self-care (01) ==
PROVIDERS: Emergency Medicine; Emergency Provider Emergency Medicine; PCP Family Medicine
DX: R10.30 Lower abdominal pain, unspecified (principal); Z87.891 Personal history of nicotine dependence
CPT/HCPCS: 36415; 74176; 80053; 81001; 83690; 85025; 96361; 96374; 96375; 99284

== ENCOUNTER 2023-06-28 10:03 | Outpatient (CLI) | payer MEDICARE, SELFPAY ==
[2023-06-28 19:53] LABS: Anion Gap 7 mmol/L (8-16); Blood Urea Nitrogen 14 mg/dL (9-20); Calcium 9.7 mg/dL (8.4-10.2); Carbon Dioxide 28 mmol/L (22-30); Chloride 105 mmol/L (98-107); Cholesterol 284 mg/dL (0-200); Estimated Glomerular Filt Rate > 60; Glucose 80 mg/dL (65-110); HDL Direct 45 mg/dL; Potassium 4.8 mmol/L (3.4-5.0); Sodium 140 mmol/L (137-145); Triglycerides 112 mg/dL (<150)
[2023-06-28 20:07] LABS: Hepatitis C Virus Antibody Negative (Negative)
[2023-06-28 20:18] LABS: LDL Cholesterol Direct 191 mg/dL
[2023-06-28 20:32] LABS: Basophils Percent Auto 0.9 % (0.2-1.2); Eosinophils Absolute Auto 0.1 K/mm3 (0-0.3); Eosinophils Percent Auto 1.6 % (0-4.4); Hematocrit 45.1 % (42.0-52.0); Hemoglobin 14.7 g/dL (14.0-18.0); Immature Granulocyte Absolute 0.01 K/mm3 (0.00-0.031); Immature Granulocyte Percent A 0.2 % (0-0.5); Lymphocytes Absolute Auto 1.28 K/mm3 (0.9-3.2); Lymphocytes Percent Auto 29.4 % (18.3-44.2); Mean Corpuscular HGB Conc 32.6 g/dl (32-36); Mean Corpuscular Hemoglobin 30.9 pg (26-34); Mean Corpuscular Volume 94.9 fl (80-100); Monocytes Absolute Auto 0.4 K/mm3 (0.1-0.6); Monocytes Percent Auto 8.7 % (2.6-8.5); Neutrophils Absolute Auto 2.6 K/mm3 (1.3-6.7); Neutrophils Percent Auto 59.2 % (45.5-73.1); Platelet Count Result 279 k/mm3 (150-375); Red Blood Count 4.75 M/mm3 (4.6-6.20); Red Cell Distribution Width 13.3 % (11.5-14.5); White Blood Count 4.4 K/mm3 (4.5-10.0)
== END 2023-06-28 10:04 | disposition home or self-care (01) ==
PROVIDERS: PCP Family Medicine; Visit Provider Nurse Practitioner Family
DX: R97.20 Elevated prostate specific antigen [PSA] (principal); Z11.59 Encounter for screening for other viral diseases; Z80.0 Family history of malignant neoplasm of digestive organs; R03.0 Elevated blood-pressure reading, without diagnosis of hypertension; Z12.5 Encounter for screening for malignant neoplasm of prostate; E78.2 Mixed hyperlipidemia; G47.00 Insomnia, unspecified
CPT/HCPCS: 36415; 80048; 80061; 84153; 84443; 85025; 86803

== ENCOUNTER 2024-07-04 08:13 | Outpatient (CLI) | payer MEDICARE, SELFPAY ==
[2024-07-04 13:18] LABS: Basophils Absolute Auto 0.1 K/mm3 (0.0-0.1); Eosinophils Absolute Auto 0.2 K/mm3 (0-0.3); Eosinophils Percent Auto 3.5 % (0-4.4); Hematocrit 44.3 % (42.0-52.0); Hemoglobin 14.3 g/dL (14.0-18.0); Immature Granulocyte Absolute 0.01 K/mm3 (0.00-0.031); Immature Granulocyte Percent A 0.2 % (0-0.5); Lymphocytes Absolute Auto 1.69 K/mm3 (0.9-3.2); Lymphocytes Percent Auto 34.6 % (18.3-44.2); Mean Corpuscular HGB Conc 32.3 g/dl (32-36); Mean Corpuscular Hemoglobin 31.1 pg (26-34); Mean Corpuscular Volume 96.3 fl (80-100); Mean Platelet Volume 10.2 fl (7.4-10.4); Monocytes Absolute Auto 0.5 K/mm3 (0.1-0.6); Monocytes Percent Auto 9.8 % (2.6-8.5); Neutrophils Absolute Auto 2.5 K/mm3 (1.3-6.7); Neutrophils Percent Auto 50.9 % (45.5-73.1); Platelet Count Result 253 k/mm3 (150-375); Red Cell Distribution Width 13.7 % (11.5-14.5); White Blood Count 4.9 K/mm3 (4.5-10.0)
[2024-07-04 13:38] LABS: Anion Gap 10 mmol/L (4-12); Blood Urea Nitrogen 13 mg/dL (9-20); Carbon Dioxide 26 mmol/L (22-30); Chloride 102 mmol/L (98-107); Potassium 4.2 mmol/L (3.4-5.0); Sodium 138 mmol/L (137-145)
[2024-07-04 13:39] LABS: Alanine Aminotransferase 25 U/L (6-50); Albumin Level 4.4 g/dL (3.5-5.1); Alkaline Phosphatase 80 U/L (38-126); Aspartate Amino Transferase 37 U/L (17-59); Bilirubin,Total 0.7 mg/dL (0.2-1.3); Calcium 9.3 mg/dL (8.4-10.2); Cholesterol 276 mg/dL (0-200); Estimated Glomerular Filt Rate > 60; Glucose 82 mg/dL (65-110); HDL Direct 40 mg/dL; Triglycerides 169 mg/dL (<150)
[2024-07-04 13:49] LABS: LDL Cholesterol Direct 177 mg/dL
[2024-07-04 14:16] LABS: Prostate Specific Antigen 6.8 ng/mL (< OR = 4.0)
== END 2024-07-04 08:14 | disposition home or self-care (01) ==
PROVIDERS: PCP Family Medicine; Visit Provider Nurse Practitioner Family
DX: E78.5 Hyperlipidemia, unspecified (principal); H04.123 Dry eye syndrome of bilateral lacrimal glands; M48.00 Spinal stenosis, site unspecified; R68.2 Dry mouth, unspecified; Z80.0 Family history of malignant neoplasm of digestive organs; Z96.649 Presence of unspecified artificial hip joint; R53.83 Other fatigue; R97.20 Elevated prostate specific antigen [PSA]
CPT/HCPCS: 36415; 80053; 80061; 84153; 84443; 85025

== ENCOUNTER 2024-08-06 11:50 | Outpatient (CLI) | payer MEDICARE, SELFPAY ==
--- NOTE | ~2024-08-06 | XR_ITS ---
Left Knee Technique: AP and lateral views were obtained. Clinical History: Pain Findings: No fracture or dislocation is seen. Osseous alignment is anatomic. Joint spaces are preserv ed, with minimal spurring at the medial joint line. Soft tissues are unremarkable. No joint effusion is seen. Impression: Minimal degenerative change, as above. Reviewed, dictated and finalized at location . Impression: Minimal degenerative change, as above.
== END 2024-08-06 11:51 | disposition home or self-care (01) ==
PROVIDERS: PCP Family Medicine; Visit Provider Nurse Practitioner Family
DX: M25.562 Pain in left knee (principal)
CPT/HCPCS: 73562

== ENCOUNTER 2025-01-23 13:46 | Outpatient (CLI) | payer MEDICARE, SELFPAY ==
--- OUTSIDE RECORDS SUMMARY | 2025-01-23 15:26 | XMS_ITS | Encounter Summary ---
Author Organization [facility] Address [facility] [place] [address] Care Team Providers Care Lactation Nurse Name Role Phone Basil Lebron MD Primary Care Provider [phone]- [phone] Encounter Details Date Type Department Care Team (Late st Contact Info) Description 12/14/2021 Prep for Procedure [facility] Pre-Admission Testing [place] [address] Donald Hughes MD [address] [place] [address] [place] [address] Social History Tobacco Use Types Packs/Day Years Used Date Smoking Tobacco: Every Day Cigarettes Smokeless Tobacco: Never Comments:social smoker 40 yr s while drinking Alcohol Use Standard Drinks/Week Comments Yes 0 (1 standard drink = 0.6 oz pur e alcohol) couple times a week PHQ-2 Answer Date Recorded PHQ-2 Score - If the patient scores above 3, please move on to questions 3-9 0 11/25/2021 Sex and Gender Information Value Date Recorded Sex Assigned at Not on file Legal Sex Male 8:24 AM MANUFACTURING COORDINATOR Gender Identity Not on file Sexual Orientation Not on file COVID-19 Exposure Response Date Recorded In the last month, have you been in contact with someone who was confirmed or suspected to have Coronavirus / COVID-19? No / Unsure 12/14/2021 3:10 PM MANUFACTURING COORDINATOR documented as of this encounter Plan of Treatment Not on file documented as of this encounter Results * CORONAVIRUS (COVID-19) ANTIGEN (In-house Emi) (12/18/2021 10:10 AM MANUFACTURING COORDINATOR) CORONAVIRUS ANTIGEN IA NEGATIVE NEGATIVE 12/18/2021 11:31 AM MANUFACTURING COORDINATOR [facility] Comment: NEGATIVE RESULTS SHOULD BE TREATED PRESUMPTIVE AND CONFIRMED WITH A MOLECULAR ASSAY IF NECESSARY FOR PATIENT MANAGEMENT. NEGATIVE RESULTS DO NOT RULE OUT COVID 19 AND SHOULD NOT BE USED THE SOLE BASIS FOR TREATMENT OR PATIENT MANAGEMENT DECISIONS, INCLUDING INFECTION CONTROL DECISIONS. NEGATIVE RESULTS SHOULD BE CONSIDERED IN THE CONTEXT OF A PATIENT'S RECENT EXPOSURES, HISTORY AND THE PRESENCE OF CLINICAL SIGNS AND SYMPTOMS CONSISTENT WITH COVID 19. THIS TEST HAS BEEN AUTHORIZED BY THE FDA UNDER AN EMERGENCY USE AUTHORIZATION (EUA) FOR USE BY AUTHORIZED LABORATORIES. SPECIMEN TYPE NASAL 12/18/2021 10:14 AM MANUFACTURING COORDINATOR [facility] FIRST TEST NO 12/18/2021 10:[address] [facility] EMPLOYED IN HEALTHCARE NO 12/18/2021 10:[address] [facility] SYMPTOMATIC DEFINED BY CDC NO 12/18/2021 10:14 AM MANUFACTURING COORDINATOR [facility] HOSPITALIZATION STATUS NO 12/18/2021 10:[address] [facility] PATIENT IN ICU NO 12/18/2021 10:[address] [facility] RESIDENT OF [facility] NO 12/18/2021 10:[address] [facility] Specimen from nose (specimen) NASAL STRUCTURE / Unknown 12/18/2021 10:10 AM MANUFACTURING COORDINATOR us Donald Hughes MD MICROBIOLOGY - GENERAL ORDERAB LES Final Result [facility] [address] [place] [address], documented in this encounter Visit Diagnoses Diagnosis Preop examination- Primary Preoperative examination, unspecified documented in this encounter Additional Health Concerns Infection Onset Date Last Indicated Resolved Time COVID-19 Rule Out 12/18/2021 12/18/202112/1812/18/2021 11:32 AM MANUFACTURING COORDINATOR Assessment Noted Time PHQ-9 Depression Total Score: 0 11/25/19 22 12:47 PM MANUFACTURING COORDINATOR documented as of this encounter Care Teams Lactation Nurse Relationship Specialty Start Date End Date Basil Lebron MD PCP - General FAMILY PRACTICE 12/17/20 documented as of this encounter
--- OUTSIDE RECORDS SUMMARY | 2025-01-23 15:26 | XMS_ITS | Clinical Summary ---
Author Organization [facility] Address [address] [place] [address] Care Team Providers Care Engineering Production Liaison Name Role Phone Basil Lebron MD Primary Care Provider [phone] [phone] Allergies No known active allergies Medications aspirin 325 mg EC tabletIndicatio ns:Deep Vein Thrombosis Prevention Take 1 tablet (325 mg total) by mouth 2 (two) times a day. Take for 6 weeks after your surgery for blood clot prevention 90 tablet 8 Active Additional Information Patient not taking.Reported on 10/02/2018 celecoxib (CeleBREX) 200 mg capsuleIndicati ons:Pain Take 1 capsule (200 mg total) by mouth 2 (two) times a day. Until your prescription is finished 8 Active Additional Information Patient not taking.Reported on 10/02/2018 senna-docusate (PERICOLACE) 8.6-50 mgIndications:c onstipation Take 2 tablets by mouth 2 (two) times a day. You may take up to 4 tabs twice daily if needed for constipation. HOLD for diarrhea. 80 tablet 1 8 Active ondansetron (ZOFRAN) 4 mg tablet Take 1 tablet (4 mg total) by mouth every 6 (six) hours as needed for nausea or vomiting. 20 tablet 1 8 Active Additional Information Patient not taking.Reported on 10/02/2018 hydrOXYzine (VISTARIL) 25 mg capsule Take 1 capsule (25 mg total) by mouth every 4 (four) hours as needed (pain). 60 capsule 1 8 Active Additional Information Patient not taking.Reported on 08/14/2018 hydrOXYzine (ATARAX) 25 mg tablet TAKE 1 CAPSULE BY MOUTH EVERY 4 HOURS NEEDED FOR PAIN 1 8 Active zolpidem (AMBIEN) 10 mg tabletIndicatio ns:Sleep-Onset Insomnia Take 1 tablet (10 mg total) by mouth nightly as needed for sleep. 14 tablet 8 Active oxyCODONE-aceta minophen (PERCOCET) 5-325 mg per tabletIndicatio ns:Pain Take 1-2 tablets by mouth every 6 (six) hours as needed for pain. 70 tablet 8 Active sildenafiL, pulm.hypertensi on, (REVATIO) 20 mg tablet TAKE 1 TABLET BY MOUTH EVERY 4 TO 6 HOURS NEEDED SEXUAL ACTIVITY. 0 Active tamsulosin (FLOMAX) 0.4 mg extended release capsule Take 0.4 mg by mouth daily 1 Active tiZANidine (ZANAFLEX) 4 mg tablet Take 4 mg by mouth every 8 (eight) hours as needed 9 Active Active Problems Problem Noted Date Diagnosed Date Smoker 07/12/2018 Primary osteoarthritis of right knee 06/12/2018 Overview (06/12/2018): Added automatically from request for surgery [id number] Surgical History Surgery Date Site/Laterality Comments TOTAL HIP ARTHROPLASTY 11/14/2010 - 11/13/2011 Left LASIK KNEE ARTHROSCOPY Bilateral KNEE SURGERY Social History Tobacco Use Types Packs/Day Years Used Date Smoking Tobacco: Light Smoker Cigarettes 0.3 53.2 Started: 1971 Smokeless Tobacco: Never Alcohol Use Standard Drinks/Week Comments Yes 4 (1 standard drink = 0.6 oz pur e alcohol) Sex and Gender Information Value Date Recorded Sex Assigned at Not on file Legal Sex 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 Gender Identity Not on file Sexual Orientation Not on file Obstetrics History Last Filed Vital Signs Vital Sign Reading Time Taken Comments Blood Pressure 142/80 07/04/2021 3:25 PM CDT Pulse 94 07/04/2021 3:25 PM CDT Temperature 36.9 C (98.5 F) 07/04/2021 3:25 PM CDT Respiratory Rate 18 07/04/2021 3:25 PM CDT Oxygen Saturation 96% 07/04/2021 3:25 PM CDT Inhaled Oxygen Concentration - - Weight 79.4 kg (175 lb) 07/04/2021 3:25 PM CDT Height 180.3 cm (5' 11 ) 07/04/2021 3:25 PM CDT Body Mass Index 24.41 07/04/2021 3:25 PM CDT Plan of Treatment Not on file Medical Devices Implanted Type Area Sap Project Manager Device Identifier Shelf Expiration Date Model / Serial / Lot [employer] 6191-1-010 Simplex P Radiopaque Full Dose Cement Bone Sterile - [id number] Implanted:Qty: 1 on 07/13/2018 by Zbigniew Mcfadden MD at [facility] Right: Knee [employer] [id number] 11/13/2020 6191-1-010 / / [employer] [id number] High Flex [id number] Unicompartmental Modular Knee Right Medial Left - [id number] Implanted:Qty: 1 on 07/13/2018 by Zbigniew Mcfadden MD at [facility] Right: Knee [employer] [id number] 08/13/2027 [id number] / / [id number] [employer] [id number] Jess 8mm Unicompartmental Knee Tibia 4 Insert Articular - [id number] Implanted:Qty: 1 on 07/13/2018 by Zbigniew Mcfadden MD at [facility] Right: Knee [employer] [id number] 09/13/2020 [id number] / / [id number] [employer] [id number] Unicompartmental Fix Bearing Asymmetric Knee Right Medial - [id number] Implanted:Qty: 1 on 07/13/2018 by Zbigniew Mcfadden MD at [facility] Right: Knee [employer] 04/04/2028 [id number] / / Implanted - Out of Service Type Area Sap Project Manager Device Identifier Shelf Expiration Date Model / Serial / Lot Left Hip Left: Hip Insurance [facility] MDCR HMO REF [place] [id number] MEDICARE SOLUTIONS [place] [id number] [place] [address] Advance Directives For more information, please contact: [phone] * Full Code (Latest Code Status on File) Date Activated Date Inactivated Comments 07/13/2018 8:55 AM 07/13/2018 6:52 PM Care Teams Engineering Production Liaison Relationship Specialty Start Date End Date Basil Lebron MD PCP - General 12/08/17
--- OUTSIDE RECORDS SUMMARY | 2025-01-23 15:26 | XMS_ITS | Clinical Summary ---
Author Organization [facility] Address [address] [place] [address] Care Team Providers Care Tabulating Machine Mechanic Name Role Phone Basil Lebron MD Primary Care Provider +1- [phone] Allergies No known active allergies Medications tiZANidine (ZANAFLEX) 4 mg Tablet Take 1 Tablet (4 mg) by mouth every 8 hours as needed for Spasm. Takes 2 pills at bedtime to help sleep. 60 Tablet 3 09/26/2019 Active acetaminophen (TYLENOL) 160 mg/5 mL Suspension Take by mouth every 4 hours as needed. 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 09/07/2019 Family History Medical History Relation Name Comments Liver Disease Father Arthritis-osteo Mother Other Mother Pagets disease Other Sister Scoliosis, spin al surgeries Relation Name Status Comments Father Mother Sister Alive Social History Tobacco Use Types Packs/Day Years Used Date Smoking Tobacco: Every Day Cigarettes 0.3 40 Smokeless Tobacco: Never Alcohol Use Standard Drinks/Week Comments Yes 0 (1 standard drink = 0.6 oz pur e alcohol) moderate Sex and Gender Information Value Date Recorded Sex Assigned at Not on file Legal Sex Male 2:20 PM CDT Gender Identity Not on file Sexual Orientation Not on file Occupation Industry Job Start Date Job End Date Not on file Not on file Not on file Not on file Last Filed Vital Signs Vital Sign Reading Time Taken Comments Blood Pressure 144/80 10/24/2019 3:59 PM GLASS INSERTER Pulse 82 09/26/2019 3:50 PM GLASS INSERTER Temperature 36.4 C (97.5 F) 09/26/2019 3:10 PM GLASS INSERTER Respiratory Rate 16 09/26/2019 2:45 PM GLASS INSERTER Oxygen Saturation 95% 09/26/2019 3:50 PM GLASS INSERTER Inhaled Oxygen Concentration - - Weight 75.3 kg (166 lb) 09/26/2019 9:37 AM GLASS INSERTER Height 181.6 cm (5' 11.5 ) 09/26/2019 9:37 AM CS T Body Mass Index 22.83 09/26/2019 9:37 AM GLASS INSERTER Plan of Treatment Health Maintenance Due Date Last Done Comments DTAP/TDAP/TD VACCINES (1 - Tdap) 02/09/1975 PNEUMOCOCCAL VACCINE 50+ YEARS (1 of 2 - PCV) 02/09/19 75 COLORECTAL SCREENING 02/09/2001 Colorectal Cancer Screening 02/09/2001 FIT-DNA Q 3 years 02/09/2001 FIT/FOBT Q 1 year 02/09/2001 Flex Sig/CT Colonography Q 5 years 02/09/2001 ZOSTER VACCINE (1 of 2) 02/09/2006 INFLUENZA VACCINE (#1) 2024 RSV VACCINE (60+ or ) (1 - 1-dose 75+ series) 02/09/2031 Medical Devices Explanted Type Area Acid Tank Liner Device Identifier Shelf Expiration Date Model / Serial / Lot Hemostatic Surgiflo 8ml W/Thrombin 2994 - [id number] Explanted:Qty: 1 on 09/26/2019 by Meng Bhardwaj MD at [facility] Hemostatic N/A: Spine Lumbar [employer] 08/13/2020 [id number] / / [id number] Insurance [facility] BLUE ACCESS/TRUE BLUE PPO RX [facility] [employer] Advance Directives For more information, please contact: [phone] * Full Code (Latest Code Status on File) Date Activated Date Inactivated Comments 09/26/2019 10:26 AM 09/26/2019 6:04 PM Care Teams Tabulating Machine Mechanic Relationship Specialty Start Date End Date Basil Lebron MD PCP - General Family Practice 08/24/19
--- OUTSIDE RECORDS SUMMARY | 2025-01-23 15:26 | XMS_ITS | Clinical Summary ---
Author Organization [facility] Address [address] [place] [address] Care Team Providers Care Hospital Manager Name Role Phone Basil Lebron MD Primary Care Provider [phone] Allergies No known active allergies Medications FLAXSEED, LINSEED, OR Take 1 tablet by mouth daily. Active HYDROcodone-ac etaminophen 5-325 MG tabletIndicati ons:Acute Pain < 3 Day Supply Take 1-2 tablets by mouth every 4 (four) hours as needed for Pain. Indications: Acute Pain < 3 Day Supply For Moderate Pain 15 tablet 2 Active bacitracin-cole mycin-polymyxi n-hydrocortiso ne (COLE-POLYCIN HC) Ointment ophthalmic ointment APPLY A 0.5 INCH RIBBON BY OPHTHALMIC ROUTE 4 TIMES PER DAY FOR 5 DAYS 2 Active nirmatrelvir & ritonavir 300/100 (PAXLOVID) 20 x 150 MG & 10 x 100MG tablet pack TAKE 2 TABLETS BY MOUTH TAKE 1 TABLET BY MOUTH TWICE A DAY FOR 5 DAYS 2 Active SODIUM FLUORIDE 5000 PPM 1.1 % Paste see administration instructions. 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 [place] 09/07/2019 Smoker 07/12/2018 Primary osteoarthritis of right knee 06/12/2018 Overview (11/16/2021): Added automatically from request for surgery [id number] Immunizations Name Administration Dates Next Due Td 03/01/2019 Tdap (Generic) 02/28/2019 Family History Medical History Relation Comments liver cancer Father No Known Problems Maternal Grandfather No Known Problems Maternal Grandmother No Known Problems Mother No Known Problems Paternal Grandfather No Known Problems Paternal Grandmother Relation Status Comments Father Maternal Grandfather Maternal Grandmother Mother Paternal Grandfather Paternal Grandmother Social History Tobacco Use Types Packs/Day Years Used Date Smoking Tobacco: Every Day Cigarettes Smokeless Tobacco: Never Tobacco Cessation:Ready to Q uit: No; Counseling Given: Yes Comments:social smoker 40 yrs while drinking Alcohol Use Standard Drinks/Week Comments Yes 0 (1 standard drink = 0.6 oz pur e alcohol) 2x weekly; approx 8 drinks. 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 Gender Identity Not on file Sexual Orientation Not on file Last Filed Vital Signs Vital Sign Reading Time Taken Comments Blood Pressure 114/66 08/26/2022 11:09 AM CDT Pulse 88 08/26/2022 11:09 AM CDT Temperature 36.3 C (97.3 F) 08/26/2022 11:09 AM CDT Respiratory Rate 18 08/26/2022 11:09 AM CDT Oxygen Saturation 97% 08/26/2022 11:09 AM CDT Inhaled Oxygen Concentration - - Weight 80.3 kg (177 lb) 08/26/2022 11:09 AM CDT Height 180.3 cm (5' 11 ) 08/26/2022 11:09 AM CDT Body Mass Index 24.69 08/26/2022 11:09 AM CDT Plan of Treatment Health Maintenance Due Date Last Done Comments Colorectal Cancer Screening Colonoscopy (10 Years) 1955 Pneumococcal Vaccine: 65+ Years (1 of 2 - PCV) 02/09/1962 PHQ-2 (Physician [place]) 1968 Hepatitis C 02/09/1974 Zoster Vaccines (1 of 2) 02/09/2006 Annual Medicare Wellness Visit 02/09/2021 COVID-19 Vaccine (1 - 2023-2 5 season) 2024 Influenza Adult (#1) 2024 PHQ-2 (Physician [place]) 11/14/2024 DTaP, Tdap and Td Vaccines ( 3 - Td or Tdap) 03/01/2029 03/01/2019, 02/28/2019 RSV Immunization or 60+ Years (1 - 1-dose 75+ series) 02/09/2031 Meningococcal B Vaccine Aged Out No l onger eligible based on patient's age to complete this topic Meningococcal Vaccine Aged Out No earl madhuri eligible based on patient's age to complete this topic RSV Immunizations Under 20 Months Aged Out No longer eligible b ased on patient's age to complete this topic Insurance MED REPLACE [facility] MEDICARE MED REPLACE [facility] MEDICARE Advance Directives * Full Code (Latest Code Status on File) Date Activated Date Inactivated Comments 12/22/2021 10:56 AM 12/23/2021 4:45 PM Care Teams Hospital Manager Relationship Specialty Start Date End Date Basil Lebron MD PCP - General FAMILY PRACTICE 12/17/20
--- OUTSIDE RECORDS SUMMARY | 2025-01-23 15:26 | XMS_ITS | Referral Summary ---
Author Organization [facility] Address [address] [place] [address] Care Team Providers Care Set Up Person Name Role Phone Basil Lebron MD Primary Care Provider [phone] Allergies No known active allergies Medications aspirin [...] (06/12/2018): Added automatically from request for surgery [id number] Social History Tobacco Use Types Packs/Day Years Used Date Smoking Tobacco: Light Smoker Cigarettes 0.3 53.2 Started: 1971 Smokeless Tobacco: Never Alcohol Use Standard Drinks/Week Comments Yes 4 (1 standard drink = 0.6 oz pur e alcohol) Sex and Gender Information Value Date Recorded Sex Assigned at Not on file 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 Gender Identity Not on file Sexual Orientation [...] on file Medical Devices Implanted Type Area General Sales Manager Device Identifier Shelf Expiration Date Model / Serial / Lot [employer] 6191-1-010 Simplex P Radiopaque Full Dose Cement Bone Sterile - [id number] Implanted:Qty: 1 on 07/13/2018 by Zbigniew Mcfadden MD at [facility] Right: Knee [employer] [id number] 11/13/2020 6191-1-010 / / [employer] [id number] High Flex [id number] Unicompartmental Modular Knee Right Medial Left - [id number] Implanted:Qty: 1 on 07/13/2018 by Zbigniew Mcfadden MD at [facility] Right: Knee [employer] [id number] 08/13/2027 [id number] / / [id number] [employer] [id number] Jess 8mm Unicompartmental Knee Tibia 4 Insert Articular - [id number] Implanted:Qty: 1 on 07/13/2018 by Zbigniew Mcfadden MD at [facility] Right: Knee [employer] [id number] 09/13/2020 [id number] / / [id number] [employer] [id number] Unicompartmental Fix Bearing Asymmetric Knee Right Medial - [id number] Implanted:Qty: 1 on 07/13/2018 by Zbigniew Mcfadden MD at [facility] Right: Knee [employer] 04/04/2028 [id number] / / Implanted - Out of Service Type Area General Sales Manager Device Identifier Shelf Expiration Date Model / Serial / Lot Left Hip Left: Hip Insurance [facility] Address: [facility] [id number] [place] [address] [facility] MDCR HMO REF [place] [phone] MEDICARE [employer] MEDICARE [employer] Advance Directives For more information, please contact: [phone] * Full Code (Latest Code Status on File) Date Activated Date Inactivated Comments 07/13/2018 8:55 AM 07/13/2018 6:52 PM Care Teams Set Up Person Relationship Specialty Start Date End Date Basil Lebron MD PCP - General 12/08/17
[2025-01-23 18:32] LABS: Basophils Absolute Auto 0.1 K/mm3 (0.0-0.1); Eosinophils Absolute Auto 0.1 K/mm3 (0-0.3); Eosinophils Percent Auto 1.9 % (0-4.4); Hemoglobin 14.4 g/dL (14.0-18.0); Immature Granulocyte Absolute 0.02 K/mm3 (0.00-0.031); Immature Granulocyte Percent A 0.4 % (0-0.5); Lymphocytes Absolute Auto 1.45 K/mm3 (0.9-3.2); Lymphocytes Percent Auto 27.6 % (18.3-44.2); Mean Corpuscular Hemoglobin 30.6 pg (26-34); Mean Corpuscular Volume 95.5 fl (80-100); Mean Platelet Volume 10.1 fl (7.4-10.4); Monocytes Absolute Auto 0.4 K/mm3 (0.1-0.6); Monocytes Percent Auto 7.6 % (2.6-8.5); Neutrophils Absolute Auto 3.2 K/mm3 (1.3-6.7); Neutrophils Percent Auto 61.5 % (45.5-73.1); Platelet Count Result 283 k/mm3 (150-375); Red Blood Count 4.71 M/mm3 (4.6-6.20); Red Cell Distribution Width 13.5 % (11.5-14.5); White Blood Count 5.3 K/mm3 (4.5-10.0)
[2025-01-23 18:49] LABS: Alanine Aminotransferase 30 U/L (6-50); Albumin Level 4.4 g/dL (3.5-5.1); Alkaline Phosphatase 107 U/L (38-126); Anion Gap 7 mmol/L (4-12); Aspartate Amino Transferase 31 U/L (17-59); Bilirubin,Total 0.5 mg/dL (0.2-1.3); Blood Urea Nitrogen 17 mg/dL (9-20); Calcium 9.3 mg/dL (8.4-10.2); Carbon Dioxide 27 mmol/L (22-30); Chloride 104 mmol/L (98-107); Estimated Glomerular Filt Rate > 60; Glucose 86 mg/dL (65-110); Potassium 4.7 mmol/L (3.4-5.0); Sodium 138 mmol/L (137-145)
== END 2025-01-23 13:47 | disposition home or self-care (01) ==
LOC: ANHGOSHLAB 13:48
PROVIDERS: PCP Family Medicine; Visit Provider Orthopaedic Surgery
DX: M17.12 Unilateral primary osteoarthritis, left knee (principal); Z79.1 Long term (current) use of non-steroidal anti-inflammatories (NSAID)
CPT/HCPCS: 36415; 80053; 85025

== ENCOUNTER 2025-09-16 14:38 | Outpatient (CLI) | payer MEDICARE, SELFPAY ==
[2025-09-16 19:15] LABS: Hematocrit 43.5 % (42.0-52.0); Hemoglobin 14.0 g/dL (14.0-18.0); Immature Granulocyte Percent A 0.4 % (0-0.5); Lymphocytes Absolute Auto 1.69 K/mm3 (0.9-3.2); Mean Corpuscular HGB Conc 32.2 g/dl (32-36); Mean Corpuscular Hemoglobin 30.4 pg (26-34); Mean Corpuscular Volume 94.6 fl (80-100); Nucleated Red Blood Cells Absolute Auto 0.000 K/mm3 (0.0-0.012); Nucleated Red Blood Cells Perc 0.0 % (0.0-0.2); Platelet Count Result 258 k/mm3 (150-375); Red Blood Count 4.60 M/mm3 (4.6-6.20); White Blood Count 5.2 K/mm3 (4.5-10.0)
[2025-09-16 19:22] LABS: Alanine Aminotransferase 35 U/L (6-50); Albumin Level 4.4 g/dL (3.5-5.1); Alkaline Phosphatase 90 U/L (38-126); Anion Gap 5 mmol/L (4-12); Aspartate Amino Transferase 33 U/L (17-59); Bilirubin,Total 0.4 mg/dL (0.2-1.3); Blood Urea Nitrogen 20 mg/dL (9-20); Calcium 9.3 mg/dL (8.4-10.2); Carbon Dioxide 29 mmol/L (22-30); Chloride 104 mmol/L (98-107); Estimated Glomerular Filt Rate > 60; Glucose 76 mg/dL (65-110); Potassium 4.1 mmol/L (3.4-5.0); Sodium 138 mmol/L (137-145); Total Protein 7.7 g/dL (6.3-8.2)
== END 2025-09-16 14:39 | disposition home or self-care (01) ==
LOC: ANHGOSHLAB 14:39
PROVIDERS: PCP Family Medicine; Visit Provider Orthopaedic Surgery
DX: Z51.81 Encounter for therapeutic drug level monitoring (principal); Z79.1 Long term (current) use of non-steroidal anti-inflammatories (NSAID)
CPT/HCPCS: 36415; 80053; 85025